=== PATIENT | male | born 1955 | race African-American/Black ===

== ENCOUNTER 2020-01-31 11:40 | Emergency (ER) | payer OTHER ==
[~2020-01-31 11:40] MED LIST: Amiodarone 150 MG/3 ML VIAL ONE; EPINEPHrine 1 MG/10 ML Abboject SYRINGE ONE
[2020-01-31] MEDS ORDERED: Adenosine 6 MG/2 ML VIAL ONE (11:46)
[2020-01-31 12:30] LABS: Hemoglobin 13.5 g/dL (14.0-18.0); Mean Corpuscular HGB CONC 31.5 g/dL (32.0-36.0); Mean Corpuscular Hemoglobin 29.1 pg (27.0-31.0); Mean Corpuscular Volume 92.3 fL (78.0-98.0); Mean Platelet Volume 8.3 fL (7.4-10.4); Platelet Count 199 thou/uL (130-400); RBC Distribution Width 14.3 % (11.5-14.5); Red Blood Cell (RBC) Count 4.64 mill/uL (4.70-6.10); White Blood Cell (WBC) Count 10.5 thou/uL (4.8-10.8)
[2020-01-31 12:37] LABS: ALT (SGPT) 18 U/L (8-55); AST (SGOT) 28 U/L (5-34); Albumin 3.9 g/dL (3.4-4.8); Alkaline Phosphatase 81 U/L (40-110); Anion Gap 21 mmol/L (10-20); BUN (Urea Nitrogen) 10 mg/dL (8.4-25.7); Bilirubin, Total 2.3 mg/dL (0.2-1.2); Calc. Creatinine Clearance 0 mL/min (70-130); Calcium 8.8 mg/dL (7.8-10.44); Carbon Dioxide 23 mmol/L (23-31); Chloride 101 mmol/L (98-107); Estimated GFR-MDRD 71; Globulin 3.9 g/dL (2.4-3.5); Glucose 139 mg/dL (80-115); Magnesium 1.9 mg/dL (1.6-2.6); Potassium 4.3 mmol/L (3.5-5.1); Protein, Total 7.8 g/dL (5.8-8.1); Sodium 141 mmol/L (136-145)
[2020-01-31 12:53] LABS: Band 4 % (5-11); Eosinophils 2 % (0-10); Hypochromia SLIGHT = 6-15 cells (100X) (0-5/hpf); Lymphocytes 16 % (21-51); MDiff Complete? YES; Monocytes 13 % (0-10); Neutrophil 47 % (42-75); Platelet Morphology Comment Appears Adequate; Polychromasia SLIGHT = 2-3 cells (100X) (0-2/hpf); Reactive Lymphocytes 18 % (0-10); Target Cells SLIGHT = 2-5 cells (100X) (0-1/hpf); Tear Drops SLIGHT = 2-5 cells (100X) (0-1/hpf)
--- NOTE | 2020-02-06 14:17 | EKG ---
Test Reason : Blood Pressure : / mmHG Vent. Rate : 108 BPM Atrial Rate : 108 BPM P-R Int : 000 ms QRS Dur : 090 ms QT Int : 302 ms P-R-T Axes : 034 055 195 degrees QTc Int : 404 ms Sinus tachycardia with 1st degree A-V block with Premature atrial complexes Nonspecific ST and T wave abnormality Abnormal ECG Reconfirmed by SOULEYMANE GRACE ([id number]), commissioning editor PRITI TOM ([id number]) on 02/06/2020 2:16:48 PM Referred By: Confirmed By:SOULEYMANE Shabazz
== END 2020-01-31 12:06 | disposition expired ==
LOC: ERS 11:40 → MERGE 11:40 → EDBD 11:40 → ERS 12:06
DX: I46.9 Cardiac arrest, cause unspecified (principal)
CPT/HCPCS: 51702; 80053; 83605; 83735; 84484; 85025; 92950; 93005; 96374; 96375; J0153; J0171; J0282; U0001